=== PATIENT | male | born 1945 | race Caucasian/White ===

== ENCOUNTER 2024-11-25 18:04 | Inpatient (IN) | payer OTHER, BC ==
[2024-11-25] MEDS ORDERED: ACETAMINOPHEN INJECTION 100 ML ONE (19:04)
[2024-11-25] MEDS: ACETAMINOPHEN 1000 MG/100 ML BAG IVPB ONE (19:08)
[2024-11-25 19:11] LABS: BASO % 1.1 % (0-2.0); EOS % 0.6 % (0-4.5); HEMATOCRIT 35.9 % (35.4-49); HEMOGLOBIN 12.2 GM/dL (11.7-16.9); LYMPH % 13.2 % (8-40); MCH 31.1 pg (25.7-33.7); MCHC 33.9 g/dl (32.0-35.9); MEAN CELL VOLUME 91.8 fl (80-96); MEAN PLT VOLUME 7.4 fl (7.5-11.1); MONO % 8.5 % (3.8-10.2); NEUT % 76.6 % (42.8-82.8); PLATELET COUNT 273 10^3/uL (134-434); RBC 3.92 M/mm3 (4.00-5.60); RDW 14.6 % (11.9-15.9); VENOUS BASE EXCESS 2.4 mmol/L (-2-2); VENOUS O2 SATURATION 52.5 % (70-80); VENOUS PH 7.482 (7.310-7.410); WHITE BLOOD COUNT 9.6 K/mm3 (4.0-10.0)
[2024-11-25 19:29] LABS: POTASSIUM 3.5 mmol/L (3.5-5.1)
[2024-11-25 19:31] LABS: ALBUMIN 3.6 g/dl (3.4-5.0); CALCIUM 8.8 mg/dL (8.5-10.1)
[2024-11-25 19:32] LABS: BLOOD UREA NITROGEN 18.9 mg/dL (7-18)
[2024-11-25 19:34] LABS: CREATININE 0.9 mg/dL (0.55-1.3)
[2024-11-25 19:36] LABS: BILIRUBIN,TOTAL 0.6 mg/dL (0.2-1); TOT PROT 6.4 g/dl (6.4-8.2)
[2024-11-25] MEDS ORDERED: FUROSEMIDE 40 MG/4 ML INJECTABLE VIAL ONE (21:36)
[2024-11-25] MEDS: FUROSEMIDE 40 MG/4 ML INJECTABLE VIAL IVPUSH ONE ×2 (21:44)
[2024-11-26] VITALS: BMI 32.8
[2024-11-26] MEDS: ACETAMINOPHEN 1000 MG/100 ML BAG IVPB PRN (03:33)
[2024-11-26 03:53] LABS: URIC ACID 5.7 mg/dL (2.6-7.2)
[2024-11-26] MEDS ORDERED: ALBUTEROL SO4 2.5/IPRATROPIUM 0.5 INH SOL 3 ML VIAL.NEB. NEB PRN (04:17)
[2024-11-26 07:36] LABS: HEMATOCRIT 31.5 % (35.4-49); HEMOGLOBIN 10.8 GM/dL (11.7-16.9); MCH 31.6 pg (25.7-33.7); MCHC 34.5 g/dl (32.0-35.9); MEAN CELL VOLUME 91.7 fl (80-96); MEAN PLT VOLUME 7.8 fl (7.5-11.1); PLATELET COUNT 227 10^3/uL (134-434); RBC 3.43 M/mm3 (4.00-5.60); RDW 14.6 % (11.9-15.9); WHITE BLOOD COUNT 5.9 K/mm3 (4.0-10.0)
[2024-11-26 07:56] LABS: CHLORIDE 103 mmol/L (98-107); SODIUM 140 mmol/L (136-145)
[2024-11-26 08:01] LABS: ALBUMIN 3.1 g/dl (3.4-5.0); CALCIUM 8.7 mg/dL (8.5-10.1); GLUCOSE,RANDOM 80 mg/dL (74-106)
[2024-11-26 08:02] LABS: BLOOD UREA NITROGEN 15.9 mg/dL (7-18); CO2 29 mmol/L (21-32)
[2024-11-26 08:07] LABS: CREATININE 0.8 mg/dL (0.55-1.3); SGOT/AST 16 U/L (15-37); SGPT/ALT 8 U/L (13-61)
[2024-11-26 08:09] LABS: ALK PHOS 84 U/L (45-117); TOT PROT 5.7 g/dl (6.4-8.2)
[2024-11-26 08:11] LABS: ANION GAP 9 mmol/L (4-13); BILIRUBIN,TOTAL 0.7 mg/dL (0.2-1); POTASSIUM 2.9 mmol/L (3.5-5.1)
[2024-11-26] MEDS: FUROSEMIDE 40 MG TABLET (FP) PO SCH (09:34)
[2024-11-26] MEDS: LOSARTAN POTASSIUM 25 MG TABLET PO SCH (09:34)
[2024-11-26] MEDS: FAMOTIDINE 20 MG TABLET PO SCH (09:34)
[2024-11-26] MEDS: ALLOPURINOL 100 MG TABLET (FP) PO SCH (09:34)
[2024-11-26] MEDS: ASPIRIN COATED 81 MG TABLET.EC PO SCH (09:34)
[2024-11-26] MEDS: ENOXAPARIN NA (PORCINE) 40 MG/0.4 ML DISP.SYRIN SQ SCH (09:34)
[2024-11-26] MEDS: busPIRone HCL 10 MG TABLET (FP) PO SCH (09:34)
[2024-11-26] MEDS: amLODIPine BESYLATE 10 MG TABLET (FP) PO SCH (09:34)
[2024-11-26] MEDS ORDERED: FUROSEMIDE 20 MG TABLET (FP) PO SCH (10:00)
[2024-11-26 11:56] LABS: PH,URINE 5.5 (5.0-8.0); URINE APPEARANCE CLEAR; URINE BILIRUBIN NEGATIVE (NEGATIVE); URINE COLOR YELLOW; URINE GLUCOSE (UA) NEGATIVE (NEGATIVE); URINE KETONE NEGATIVE (NEGATIVE); URINE LEUK ESTERASE NEGATIVE (NEGATIVE); URINE NITRITE NEGATIVE (NEGATIVE); URINE PROTEIN NEGATIVE (NEGATIVE); URINE UROBILINOGEN 0.2 mg/dL (0.2-1.0)
[2024-11-26] MEDS: KCL 10 MEQ IVPB 10 MEQ/100 ML INFUS.BAG IVPB SCH (13:28)
[2024-11-26] MEDS: ATORVASTATIN CA 10 MG TABLET (FP) PO SCH (22:16)
[2024-11-26] MEDS: MIRTAZAPINE 15 MG TABLET (FP) PO SCH (22:17)
[2024-11-27 12:25] LABS: BASO % 1.3 % (0-2.0); EOS % 1.7 % (0-4.5); HEMATOCRIT 34.1 % (35.4-49); HEMOGLOBIN 11.5 GM/dL (11.7-16.9); LYMPH % 21.6 % (8-40); MCH 31.1 pg (25.7-33.7); MCHC 33.9 g/dl (32.0-35.9); MEAN CELL VOLUME 91.7 fl (80-96); MEAN PLT VOLUME 7.3 fl (7.5-11.1); MONO % 6.7 % (3.8-10.2); NEUT % 68.7 % (42.8-82.8); PLATELET COUNT 272 10^3/uL (134-434); RBC 3.72 M/mm3 (4.00-5.60); RDW 14.3 % (11.9-15.9); WHITE BLOOD COUNT 5.1 K/mm3 (4.0-10.0)
[2024-11-27] MEDS: BENZONATATE 100 MG CAPSULE PO PRN (13:54)
[2024-11-27 14:49] LABS: ALBUMIN 3.1 g/dl (3.4-5.0); BILIRUBIN,TOTAL 0.7 mg/dL (0.2-1); CALCIUM 8.9 mg/dL (8.5-10.1); CREATININE 0.8 mg/dL (0.55-1.3); POTASSIUM 3.3 mmol/L (3.5-5.1); TOT PROT 5.9 g/dl (6.4-8.2)
[2024-11-28 09:12] LABS: BASO % 1.4 % (0-2.0); EOS % 2.4 % (0-4.5); HEMATOCRIT 34.8 % (35.4-49); HEMOGLOBIN 11.8 GM/dL (11.7-16.9); LYMPH % 24.6 % (8-40); MCH 30.9 pg (25.7-33.7); MCHC 33.8 g/dl (32.0-35.9); MEAN CELL VOLUME 91.3 fl (80-96); MEAN PLT VOLUME 7.2 fl (7.5-11.1); MONO % 9.5 % (3.8-10.2); NEUT % 62.1 % (42.8-82.8); PLATELET COUNT 284 10^3/uL (134-434); RBC 3.81 M/mm3 (4.00-5.60); RDW 14.6 % (11.9-15.9); WHITE BLOOD COUNT 5.3 K/mm3 (4.0-10.0)
[2024-11-28 12:24] LABS: ALBUMIN 3.1 g/dl (3.4-5.0); BILIRUBIN,TOTAL 0.7 mg/dL (0.2-1); BLOOD UREA NITROGEN 22.2 mg/dL (7-18); CALCIUM 9.1 mg/dL (8.5-10.1); CREATININE 0.9 mg/dL (0.55-1.3); MAGNESIUM 1.6 mg/dL (1.8-2.4); POTASSIUM 3.3 mmol/L (3.5-5.1)
[2024-11-28] MEDS: POTASSIUM CHLORIDE ORAL LIQUID 20 MEQ/15 ML PO ONE (14:45)
[2024-11-28] MEDS: MAGNESIUM 2GM/50ML STERILE WATER IVPB IVPB ONE (14:45)
[2024-11-28] MEDS: MULTIVITAMINS (DAILY MVI) TABLET (FP) PO SCH (17:25)
[2024-11-28] MEDS: AMINO ACIDS/PROTEIN HYDROLYS 30 ML LIQUID.PKT PO SCH (17:25)
[2024-11-28] MEDS: ACETAMINOPHEN 1000 MG/100 ML BAG IVPB ONE (17:25)
[2024-11-28] MEDS: ASCORBIC ACID 500 MG TABLET (FP) PO SCH (22:03)
[2024-11-29 08:33] LABS: BASO % 1.5 % (0-2.0); EOS % 2.6 % (0-4.5); HEMOGLOBIN 11.6 GM/dL (11.7-16.9); LYMPH % 24.7 % (8-40); MCH 30.9 pg (25.7-33.7); MCHC 33.1 g/dl (32.0-35.9); MEAN CELL VOLUME 93.1 fl (80-96); MEAN PLT VOLUME 7.4 fl (7.5-11.1); MONO % 8.3 % (3.8-10.2); NEUT % 62.9 % (42.8-82.8); PLATELET COUNT 295 10^3/uL (134-434); RBC 3.76 M/mm3 (4.00-5.60); RDW 14.4 % (11.9-15.9); WHITE BLOOD COUNT 5.5 K/mm3 (4.0-10.0)
[2024-11-29 08:48] LABS: POTASSIUM 3.9 mmol/L (3.5-5.1)
[2024-11-29 08:49] LABS: BLOOD UREA NITROGEN 23.3 mg/dL (7-18)
[2024-11-29 08:53] LABS: PHOSPHOROUS 3.6 mg/dL (2.5-4.9)
[2024-11-29] MEDS: ACETAMINOPHEN 325 MG TABLET (FP) PO SCH (14:34)
[2024-11-29] MEDS: DEXAMETHASONE SOD PHOSPHATE 10 MG/1 ML VIAL IVPUSH SCH (14:34)
[2024-11-29 16:09] LABS: C-ANCA <1:20 titer (Neg:<1:20)
[2024-11-30 08:37] LABS: POTASSIUM 3.8 mmol/L (3.5-5.1)
[2024-11-30 08:39] LABS: ALBUMIN 3.2 g/dl (3.4-5.0); CALCIUM 9.4 mg/dL (8.5-10.1)
[2024-11-30 08:40] LABS: BLOOD UREA NITROGEN 35.2 mg/dL (7-18)
[2024-11-30 08:42] LABS: CREATININE 1.1 mg/dL (0.55-1.3)
[2024-11-30 08:44] LABS: BILIRUBIN,TOTAL 0.4 mg/dL (0.2-1); TOT PROT 6.3 g/dl (6.4-8.2)
[2024-11-30 08:56] LABS: ABSOLUTE IMMATURE GRANULOCYTES 0.04 x10^3/uL (0.0-0.031); HEMATOCRIT 36.8 % (40.1-51.0); HEMOGLOBIN 12.4 g/dL (13.7-17.5); MCHC 33.7 g/dl (32.3-36.5); MEAN CELL VOLUME 93.9 fl (79.0-92.2); MEAN PLT VOLUME 9.4 fl (9.4-12.4); MONOCYTE # 0.13 x10^3/uL (0.30-0.82); MONOCYTE % 1.6 % (5.3-12.2); PLATELET COUNT # 301 x10^3/uL (163-337); RDW 13.4 % (12.2-16.6)
[2024-11-30] MEDS: PANTOPRAZOLE 40 MG TABLET PO SCH (09:57)
[2024-11-30] MEDS: POLYETHYLENE GLYCOL (HEALTHYLAX) 3350 17 GM PACKET PO SCH (09:58)
[2024-11-30] MEDS: morphine SULFATE 4 MG/ML VIAL IVPUSH ONE (18:05)
[2024-12-01 07:46] LABS: HEMATOCRIT 33.6 % (40.1-51.0); HEMOGLOBIN 10.8 g/dL (13.7-17.5); MCHC 32.1 g/dl (32.3-36.5); MEAN CELL VOLUME 93.6 fl (79.0-92.2); MEAN PLT VOLUME 9.7 fl (9.4-12.4); PLATELET COUNT # 297 x10^3/uL (163-337); RDW 13.6 % (12.2-16.6)
[2024-12-01 08:01] LABS: POTASSIUM 3.6 mmol/L (3.5-5.1)
[2024-12-01 08:03] LABS: CALCIUM 9.3 mg/dL (8.5-10.1)
[2024-12-01 08:04] LABS: ALBUMIN 3.1 g/dl (3.4-5.0); BLOOD UREA NITROGEN 44.6 mg/dL (7-18)
[2024-12-01 08:07] LABS: CREATININE 1.1 mg/dL (0.55-1.3)
[2024-12-01 08:08] LABS: BILIRUBIN,TOTAL 0.3 mg/dL (0.2-1)
[2024-12-01] MEDS ORDERED: LORazepam 2 MG/ML SDV VIAL ONE (15:09)
[2024-12-01 15:11] VITALS: PULSE 66
[2024-12-01] MEDS: LORazepam 2 MG/ML SDV VIAL IVPUSH ONE (17:53)
[2024-12-01] MEDS: morphine CARPU-JECT 4 MG/1 ML DISP.SYRIN IVPUSH ONE (18:07)
[2024-12-01 18:09] VITALS: BP 118/63; RESP 17; TEMP 97.8
== END 2024-12-01 18:30 | disposition short-term general hospital (02) | DRG 309 ==
LOC: JER 18:04 → JERBED 21:34 → J4S 22:41 → OBSVTOIN 11-26 14:03
PROVIDERS: ADMIT Internal Medicine
DX: I44.2 Atrioventricular block, complete (principal); I50.30 Unspecified diastolic (congestive) heart failure; M50.00 Cervical disc disorder with myelopathy, unspecified cervical region; M62.81 Muscle weakness (generalized); F32.A Depression, unspecified; I11.0 Hypertensive heart disease with heart failure; D64.9 Anemia, unspecified; I25.10 Atherosclerotic heart disease of native coronary artery without angina pectoris; E78.5 Hyperlipidemia, unspecified; E78.00 Pure hypercholesterolemia, unspecified; E87.8 Other disorders of electrolyte and fluid balance, not elsewhere classified; I44.1 Atrioventricular block, second degree; G56.01 Carpal tunnel syndrome, right upper limb; E87.6 Hypokalemia; K22.9 Disease of esophagus, unspecified; R26.9 Unspecified abnormalities of gait and mobility; R53.81 Other malaise; M10.9 Gout, unspecified; M21.511 Acquired clawhand, right hand; M21.512 Acquired clawhand, left hand
CPT/HCPCS: 0241U-QW; 36415; 70551-TC; 71045-TC-FY; 71250-TC; 72141-TC; 73030-TC-LT-FY; 73070-TC-LT-FY; 73110-TC-LT-FY; 73130-TC-LT-FY; 74220-TC-FY; 80048; 80053; 80061; 81003; 82085; 82550; 82803; 83036; 83520; 83735; 83874; 83880; 84100; 84443; 84484; 84550; 85025; 85027; 85651; 86038; 86140; 86235; 86256; 86850; 86900; 86901; 87040; 87086; 93005; 93010; 93306-TC; 93880-TC; 97116-GP; 97161-GP; 99285-25; G0378; J0131; J1100

== ENCOUNTER 2025-03-13 14:19 | Inpatient (IN) | payer OTHER, BC ==
[2025-03-13 16:04] LABS: BG HCT 37.0 % (35.4-49); VENOUS BASE EXCESS 0.6 mmol/L (-2-2); VENOUS O2 SATURATION 72.6 % (70-80); VENOUS PCO2 38.5 mmHg (38-52); VENOUS PH 7.428 (7.310-7.410)
[2025-03-13 16:08] LABS: ABSOLUTE IMMATURE GRANULOCYTES 0.04 x10^3/uL (0.0-0.031); BASOPHILS # 0.10 x10^3/uL (0.01-0.08); EOSINOPHIL % 1.3 % (0.8-7.0); EOSINOPHILS # 0.10 x10^3/uL (0.04-0.54); MCHC 32.1 g/dl (32.3-36.5); MEAN CELL VOLUME 92.1 fl (79.0-92.2); MEAN PLT VOLUME 8.9 fl (9.4-12.4); MONOCYTE # 0.66 x10^3/uL (0.30-0.82); MONOCYTE % 8.8 % (5.3-12.2); RDW 14.9 % (12.2-16.6)
[2025-03-13 16:31] LABS: CO2 28.0 mmol/L (21-32); GLUCOSE,RANDOM 98.0 mg/dL (74-106)
[2025-03-13 16:34] LABS: CREATININE 0.8 mg/dL (0.55-1.3); SGOT/AST 25.0 U/L (15-37); SGPT/ALT 10.0 U/L (13-61)
[2025-03-13 16:36] LABS: TOT PROT 6.4 g/dl (6.4-8.2)
[2025-03-13 16:37] LABS: ALK PHOS 102.0 U/L (45-117)
[2025-03-13 17:34] LABS: URINE APPEARANCE TURBID; URINE BILIRUBIN NEGATIVE (NEGATIVE); URINE COLOR DK YELLOW; URINE GLUCOSE (UA) NEGATIVE (NEGATIVE); URINE KETONE TRACE (NEGATIVE)
[2025-03-13 17:36] LABS: EPI CELLS 101.7 /uL (0-25.1); HYALINE CASTS 500.48 /uL (0-3.1); URINE BACTERIA 62110.2 /uL (0-1359); URINE LEUK ESTERASE 4+ (NEGATIVE); URINE NITRITE NEGATIVE (NEGATIVE); URINE PROTEIN 300 (NEGATIVE); URINE RBC 92.1 /uL (0-23.9); URINE UROBILINOGEN 1.0 mg/dL (0.2-1.0); URINE WBC 8174.1 /uL (0-25.8)
[2025-03-13 18:01] LABS: HCV DIAGNOSTIC IN-HOUSE W/RFLX NON-REACTIVE (NONREACTIVE)
[2025-03-13] MEDS ORDERED: CEFTRIAXONE 1 GM/50 ML BAG ONE (19:13)
[2025-03-13] MEDS: CEFTRIAXONE 1 GM in DEXTROSE 5%-WATER - 100 ML IVPB ONE (19:19)
[2025-03-13 23:16] LABS: HIV INTERPRETATION NEGATIVE (NEGATIVE)
[2025-03-14 01:15] VITALS: BMI 29.7
[2025-03-14] MEDS ORDERED: ALBUTEROL SO4 2.5/IPRATROPIUM 0.5 INH SOL 3 ML VIAL.NEB. NEB PRN (04:18)
[2025-03-14 08:16] LABS: MCHC 32.4 g/dl (32.3-36.5); MEAN CELL VOLUME 91.6 fl (79.0-92.2); MEAN PLT VOLUME 8.9 fl (9.4-12.4); RDW 14.8 % (12.2-16.6)
[2025-03-14 08:52] LABS: CO2 28.0 mmol/L (21-32); GLUCOSE,RANDOM 70.0 mg/dL (74-106)
[2025-03-14 08:57] LABS: CREATININE 0.7 mg/dL (0.55-1.3); SGPT/ALT 9.0 U/L (13-61)
[2025-03-14 08:58] LABS: SGOT/AST 16.0 U/L (15-37)
[2025-03-14 08:59] LABS: TOT PROT 5.9 g/dl (6.4-8.2)
[2025-03-14 09:00] LABS: ALK PHOS 96.0 U/L (45-117)
[2025-03-14] MEDS ORDERED: FUROSEMIDE 20 MG TABLET (FP) PO SCH (10:00)
[2025-03-14] MEDS ORDERED: amLODIPine BESYLATE 10 MG TABLET (FP) PO SCH (10:00)
[2025-03-14] MEDS ORDERED: LOSARTAN POTASSIUM 25 MG TABLET PO SCH (10:00)
[2025-03-14] MEDS: busPIRone HCL 10 MG TABLET (FP) PO SCH (10:06)
[2025-03-14] MEDS: ENOXAPARIN NA (PORCINE) 40 MG/0.4 ML DISP.SYRIN SQ SCH (10:06)
[2025-03-14] MEDS: CEFTRIAXONE 1 GM in DEXTROSE 5%-WATER - 50 ML IVPB SCH (10:06)
[2025-03-14] MEDS: ALLOPURINOL 100 MG TABLET (FP) PO SCH (10:06)
[2025-03-14] MEDS: FAMOTIDINE 20 MG TABLET PO SCH (10:07)
[2025-03-14] MEDS: ASPIRIN COATED 81 MG TABLET.EC PO SCH (10:07)
[2025-03-14] MEDS: ASCORBIC ACID 250 MG TABLET (FP) PO SCH (10:07)
[2025-03-14] MEDS: LOSARTAN POTASSIUM 25 MG TABLET PO SCH (10:08)
[2025-03-14] MEDS: amLODIPine BESYLATE 10 MG TABLET (FP) PO SCH (10:09)
[2025-03-14] MEDS: MAGNESIUM SULF 50% (8.12 MEQ/2 ML-1 GM VIAL) IVPB ONE (11:22)
[2025-03-14] MEDS: POTASSIUM CHLORIDE ORAL LIQUID 20 MEQ/15 ML PO SCH (11:36)
[2025-03-14] MEDS: ARTIFICIAL TEARS OPHTHALMIC DROPS OU PRN (14:19)
[2025-03-14] MEDS: MULTIVITAMINS (DAILY MVI) TABLET (FP) PO SCH (15:18)
[2025-03-14] MEDS: SULFACETAMIDE/PREDNISOLONE 0.2% OPTHALMIC SUSP 5 ML BOTTLE OS SCH (17:29)
[2025-03-14] MEDS: ASCORBIC ACID 500 MG TABLET (FP) PO SCH (21:47)
[2025-03-14] MEDS: MIRTAZAPINE 15 MG TABLET (FP) PO SCH (21:47)
[2025-03-14] MEDS: ATORVASTATIN CA 10 MG TABLET (FP) PO SCH (21:47)
[2025-03-15 09:18] LABS: ABSOLUTE IMMATURE GRANULOCYTES 0.05 x10^3/uL (0.0-0.031); BASOPHILS # 0.07 x10^3/uL (0.01-0.08); EOSINOPHIL % 2.0 % (0.8-7.0); EOSINOPHILS # 0.18 x10^3/uL (0.04-0.54); MCHC 31.8 g/dl (32.3-36.5); MEAN CELL VOLUME 92.3 fl (79.0-92.2); MEAN PLT VOLUME 9.1 fl (9.4-12.4); MONOCYTE # 0.70 x10^3/uL (0.30-0.82); MONOCYTE % 7.7 % (5.3-12.2); RDW 14.9 % (12.2-16.6)
[2025-03-15 10:05] LABS: CO2 31.0 mmol/L (21-32); GLUCOSE,RANDOM 97.0 mg/dL (74-106)
[2025-03-15 10:08] LABS: CREATININE 0.7 mg/dL (0.55-1.3); SGOT/AST 15.0 U/L (15-37); SGPT/ALT 9.0 U/L (13-61)
[2025-03-15 10:10] LABS: TOT PROT 5.8 g/dl (6.4-8.2)
[2025-03-15 10:11] LABS: ALK PHOS 97.0 U/L (45-117)
[2025-03-15] MEDS: ACETAMINOPHEN 1000 MG/100 ML BAG IVPB ONE (15:36)
[2025-03-15 18:06] VITALS: RESP 18
[2025-03-15] MEDS: ACETAMINOPHEN 1000 MG/100 ML BAG IVPB PRN (21:21)
[2025-03-15] MEDS: MAGNESIUM 2GM/50ML STERILE WATER IVPB IVPB ONE (21:49)
[2025-03-15] MEDS: SODIUM CHLORIDE 1,000 ML IV SCH (21:50)
[2025-03-16] MEDS ORDERED: guaiFENesin 200 MG/10 ML 10 ML UNIT-DOSE CUPS PO PRN (11:12)
[2025-03-16] MEDS ORDERED: diphenhydrAMINE HCL 25 MG CAPSULE (FP) PO PRN (12:27)
[2025-03-16 12:40] LABS: ABSOLUTE IMMATURE GRANULOCYTES 0.06 x10^3/uL (0.0-0.031); BASOPHILS # 0.08 x10^3/uL (0.01-0.08); EOSINOPHIL % 1.5 % (0.8-7.0); EOSINOPHILS # 0.15 x10^3/uL (0.04-0.54); MCHC 31.4 g/dl (32.3-36.5); MEAN CELL VOLUME 94.1 fl (79.0-92.2); MEAN PLT VOLUME 9.4 fl (9.4-12.4); MONOCYTE # 0.61 x10^3/uL (0.30-0.82); MONOCYTE % 6.2 % (5.3-12.2); RDW 15.2 % (12.2-16.6)
[2025-03-16 13:06] LABS: CO2 31.0 mmol/L (21-32); GLUCOSE,RANDOM 104.0 mg/dL (74-106)
[2025-03-16 13:09] LABS: CREATININE 0.6 mg/dL (0.55-1.3); SGOT/AST 13.0 U/L (15-37); SGPT/ALT 8.0 U/L (13-61)
[2025-03-16 13:11] LABS: TOT PROT 6.2 g/dl (6.4-8.2)
[2025-03-16 13:12] LABS: ALK PHOS 98.0 U/L (45-117)
[2025-03-16] MEDS: ALBUTEROL SO4 2.5/IPRATROPIUM 0.5 INH SOL 3 ML VIAL.NEB. NEB ONE (20:45)
[2025-03-16] MEDS: ACETAMINOPHEN 1000 MG/100 ML BAG IVPB ONE (22:15)
[2025-03-18 10:27] LABS: ABSOLUTE IMMATURE GRANULOCYTES 0.04 x10^3/uL (0.0-0.031); BASOPHILS # 0.05 x10^3/uL (0.01-0.08); EOSINOPHIL % 1.8 % (0.8-7.0); EOSINOPHILS # 0.16 x10^3/uL (0.04-0.54); MCHC 31.1 g/dl (32.3-36.5); MEAN CELL VOLUME 94.2 fl (79.0-92.2); MEAN PLT VOLUME 9.5 fl (9.4-12.4); MONOCYTE # 0.64 x10^3/uL (0.30-0.82); MONOCYTE % 7.3 % (5.3-12.2); RDW 15.5 % (12.2-16.6)
[2025-03-18 10:49] LABS: CO2 29.0 mmol/L (21-32); GLUCOSE,RANDOM 123.0 mg/dL (74-106)
[2025-03-18 10:52] LABS: CREATININE 0.7 mg/dL (0.55-1.3); SGOT/AST 15.0 U/L (15-37)
[2025-03-18 10:53] LABS: SGPT/ALT 10.0 U/L (13-61); TOT PROT 5.5 g/dl (6.4-8.2)
[2025-03-18 10:55] LABS: ALK PHOS 79.0 U/L (45-117)
[2025-03-19 09:50] LABS: ABSOLUTE IMMATURE GRANULOCYTES 0.04 x10^3/uL (0.0-0.031); BASOPHILS # 0.06 x10^3/uL (0.01-0.08); EOSINOPHIL % 1.0 % (0.8-7.0); EOSINOPHILS # 0.08 x10^3/uL (0.04-0.54); MCHC 31.1 g/dl (32.3-36.5); MEAN CELL VOLUME 93.1 fl (79.0-92.2); MEAN PLT VOLUME 9.3 fl (9.4-12.4); MONOCYTE # 0.73 x10^3/uL (0.30-0.82); MONOCYTE % 9.0 % (5.3-12.2); RDW 15.3 % (12.2-16.6)
[2025-03-19 10:12] LABS: CO2 30.0 mmol/L (21-32)
[2025-03-19 10:13] LABS: GLUCOSE,RANDOM 140.0 mg/dL (74-106)
[2025-03-19 10:15] LABS: SGPT/ALT 12.0 U/L (13-61)
[2025-03-19 10:17] LABS: CREATININE 0.8 mg/dL (0.55-1.3); SGOT/AST 20.0 U/L (15-37); TOT PROT 5.6 g/dl (6.4-8.2)
[2025-03-19 10:18] LABS: ALK PHOS 79.0 U/L (45-117)
[2025-03-19] MEDS: methylPREDNISolone NA SUCC 40 MG/1 ML VIAL IVPUSH SCH (13:44)
[2025-03-19] MEDS: PRAMIPEXOLE DIHYDROCHLORIDE 0.25 MG TABLET PO SCH (22:39)
[2025-03-19] MEDS: MIRTAZAPINE 15 MG TABLET (FP) PO SCH (22:39)
[2025-03-19] MEDS: busPIRone HCL 10 MG TABLET (FP) PO SCH (22:39)
[2025-03-20 10:41] LABS: IRON SERUM 21.0 ug/dL (50-175)
[2025-03-20] MEDS: AMINO ACIDS/PROTEIN HYDROLYS 30 ML LIQUID.PKT PO SCH (17:25)
[2025-03-20] MEDS: PRAMIPEXOLE DIHYDROCHLORIDE 0.25 MG TABLET PO SCH (21:05)
[2025-03-21] MEDS: ACETAMINOPHEN 500 MG TABLET (FP) PO ONE (02:01)
[2025-03-21 09:54] LABS: CO2 30.0 mmol/L (21-32)
[2025-03-21 09:55] LABS: GLUCOSE,RANDOM 132.0 mg/dL (74-106)
[2025-03-21 09:57] LABS: CREATININE 0.7 mg/dL (0.55-1.3); SGPT/ALT 58.0 U/L (13-61)
[2025-03-21 09:58] LABS: SGOT/AST 85.0 U/L (15-37)
[2025-03-21 09:59] LABS: TOT PROT 5.6 g/dl (6.4-8.2)
[2025-03-21 10:00] LABS: ALK PHOS 88.0 U/L (45-117)
[2025-03-21 20:24] VITALS: BP 135/75; PULSE 65; TEMP 97.5
== END 2025-03-21 20:09 | disposition home or self-care (01) | DRG 689 ==
LOC: JER 14:19 → INTOOBSV 17:36 → JERBED 17:36 → J5S 22:44 → OBSVTOIN 03-14 09:53
PROVIDERS: ADMIT Internal Medicine
DX: N39.0 Urinary tract infection, site not specified (principal); L89.154 Pressure ulcer of sacral region, stage 4; M19.90 Unspecified osteoarthritis, unspecified site; F32.A Depression, unspecified; E78.5 Hyperlipidemia, unspecified; D64.9 Anemia, unspecified; I10 Essential (primary) hypertension; L89.159 Pressure ulcer of sacral region, unspecified stage; R62.7 Adult failure to thrive; B96.20 Unspecified Escherichia coli [E. coli] as the cause of diseases classified elsewhere; G20.A1 Parkinson's disease without dyskinesia, without mention of fluctuations; G25.81 Restless legs syndrome; B96.4 Proteus (mirabilis) (morganii) as the cause of diseases classified elsewhere
CPT/HCPCS: 0241U-QW; 36415; 71045-TC-FY; 72132-TC; 80053; 81003; 82550; 82607; 82746; 82803; 83540; 83550; 83735; 84100; 84443; 84484; 85025; 85027; 85651; 86140; 86803; 87086; 87389; 93005; 93010; 93970-TC; 94640; 97162-GP; 99285-25; G0378; Q9967